=== PATIENT | male | born 1955 | race Caucasian/White ===

== ENCOUNTER 2024-07-13 19:39 | Inpatient (IN) | payer OTHER ==
[~2024-07-13] VITALS: Ht 170.2 cm; Wt 87.5 kg
[2024-07-13 21:27] VITALS: BP 152/74; TEMP 98.4; O2SAT 99
[2024-07-13] MEDS ORDERED: LACT10SO58 PO (22:29)
[2024-07-13] MEDS ORDERED: LACT10SO29 PO (22:29)
[2024-07-13] MEDS ORDERED: MAG HYDROX/AL HYDROX/SIMETH 30 ML UDC PO PRN (22:30)
[2024-07-13] MEDS ORDERED: ONDANSETRON HCL/PF 4 MG/2 ML VIAL IVP PRN (22:30)
[2024-07-13] MEDS ORDERED: ACETAMINOPHEN 325 MG TABLET PO PRN (22:30)
[2024-07-13] MEDS ORDERED: ZOLPIDEM TARTRATE 5 MG TABLET PO PRN (22:30)
[2024-07-13] MEDS ORDERED: Z GUARD REMEDY 4 OZ OINT TP PRN (22:30)
[2024-07-13] MEDS ORDERED: MAGNESIUM HYDROXIDE 30 ML UDC PO PRN (22:30)
[2024-07-14] VITALS: BP 149/77; TEMP 97.9; O2SAT 99
[2024-07-14] MEDS ORDERED: FOLI0.8C PO (03:51)
[2024-07-14] MEDS ORDERED: NADO20TA3 PO (03:51)
[2024-07-14] MEDS ORDERED: LISI-768 PO (03:51)
[2024-07-14] MEDS ORDERED: FURO20TA4 PO (03:51)
[2024-07-14 04:00] VITALS: BP 143/73; TEMP 97.9; O2SAT 99
[2024-07-14 06:40] LABS: INR 1.41 (0.91-1.10); PROTHROMBIN TIME 14.6 SECS (9.2-11.1)
[2024-07-14 06:50] LABS: ALBUMIN 2.4 g/dL (3.4-5.0); BILIRUBIN,DIRECT 0.5 mg/dL (0.0-0.2); BILIRUBIN,TOTAL 1.5 mg/dL (0.2-1.0); CALCIUM, SERUM 8.4 mg/dL (8.5-10.1); CREATININE 0.8 mg/dL (0.6-1.3); MAGNESIUM 1.8 mg/dL (1.8-2.4); PHOSPHORUS 4.8 mg/dL (2.5-4.9); POTASSIUM 4.6 mmol/L (3.5-5.1); TOTAL PROTEIN, SERUM 7.1 g/dL (6.4-8.2)
[2024-07-14 07:37] LABS: THYROID STIMULATING HORMONE 5.23 uIU/mL (0.358-3.74)
[2024-07-14 07:43] LABS: BASOPHILS % (AUTO) 0.9 % (0.0-2.0); EOSINOPHILS # (AUTO) 0.3 K/uL (0.0-0.7); EOSINOPHILS % (AUTO) 8.5 % (0.0-6.0); HEMATOCRIT 34 % (39-51); HEMOGLOBIN 11.7 g/dL (13.5-17.5); LYMPHOCYTES # (AUTO) 0.8 K/uL (0.8-4.8); LYMPHOCYTES % (AUTO) 22.2 % (20.0-44.0); MEAN CORPUSCULAR HEMOGLOBIN 34 PG (26.0-33.0); MEAN CORPUSCULAR HGB CONC 35 g/dl (31.0-36.0); MEAN CORPUSCULAR VOLUME 97 fL (80-96); MONOCYTES # (AUTO) 0.5 K/uL (0.1-1.30); MONOCYTES % (AUTO) 14.3 % (2.0-12.0); NEUTROPHILS % (AUTO) 54.1 % (43.0-81.0); PLATELET COUNT (AUTO) 56 K/uL (150-450); RED BLOOD CELL COUNT(AUTO) 3.46 MIL/uL (4.5-6.0); RED CELL DISTRIBUTION WIDTH 15.6 % (11.5-15.0); WHITE BLOOD COUNT (AUTO) 3.7 K/uL (4.3-11.0)
[2024-07-14] MEDS: PANTOPRAZOLE 40 MG TABLET.DR PO SCH (07:51)
[2024-07-14 08:00] VITALS: BP 135/77; TEMP 98.2; O2SAT 100
[2024-07-14 12:00] VITALS: BP 131/98; TEMP 98.2; O2SAT 99
[2024-07-14 12:02] LABS: EOSINOPHILS % (MANUAL) 6 % (0-4); LYMPHOCYTES % (MANUAL) 19 % (16-48); MONOCYTES % (MANUAL) 4 % (0-11.0); NEUTROPHILS % (MANUAL) 71 (42-76)
[2024-07-14 12:04] LABS: ANISOCYTOSIS 1+; PLATELET ESTIMATE DECREASED
[2024-07-14] MEDS ORDERED: SPIR25TA6 PO (13:09)
[2024-07-14] MEDS: RIFAXIMIN 550 MG TABLET PO SCH (14:00)
[2024-07-14] MEDS: LACTULOSE 10 G/15 ML UDC (PYXIS) PO SCH (14:00)
[2024-07-14 16:00] VITALS: BP 123/91; TEMP 98.4; O2SAT 99
[2024-07-14 20:00] VITALS: BP 141/80; TEMP 98.2; O2SAT 99
[2024-07-15] VITALS: BP 160/79; TEMP 97.5; O2SAT 99
[2024-07-15 04:00] VITALS: BP 156/78; TEMP 97.7; O2SAT 99
[2024-07-15 07:06] LABS: BASOPHILS % (AUTO) 0.9 % (0.0-2.0); EOSINOPHILS # (AUTO) 0.5 K/uL (0.0-0.7); EOSINOPHILS % (AUTO) 12.2 % (0.0-6.0); HEMATOCRIT 35 % (39-51); HEMOGLOBIN 12.5 g/dL (13.5-17.5); LYMPHOCYTES # (AUTO) 1.4 K/uL (0.8-4.8); LYMPHOCYTES % (AUTO) 37.9 % (20.0-44.0); MEAN CORPUSCULAR HEMOGLOBIN 35 PG (26.0-33.0); MEAN CORPUSCULAR HGB CONC 36 g/dl (31.0-36.0); MEAN CORPUSCULAR VOLUME 96 fL (80-96); MONOCYTES # (AUTO) 0.6 K/uL (0.1-1.30); MONOCYTES % (AUTO) 15.2 % (2.0-12.0); NEUTROPHILS # (AUTO) 1.3 K/uL (1.8-8.9); NEUTROPHILS % (AUTO) 33.8 % (43.0-81.0); PLATELET COUNT (AUTO) 57 K/uL (150-450); RED CELL DISTRIBUTION WIDTH 15.6 % (11.5-15.0); WHITE BLOOD COUNT (AUTO) 3.7 K/uL (4.3-11.0)
[2024-07-15 07:55] LABS: EOSINOPHILS % (MANUAL) 11 % (0-4); LYMPHOCYTES % (MANUAL) 31 % (16-48); MONOCYTES % (MANUAL) 16 % (0-11.0); NEUTROPHILS % (MANUAL) 42 (42-76); PLATELET ESTIMATE DECREASED
[2024-07-15 07:56] LABS: ANISOCYTOSIS 1+
[2024-07-15 08:00] VITALS: BP 146/73; TEMP 97.9; O2SAT 97
[2024-07-15 08:26] LABS: ALBUMIN 2.3 g/dL (3.4-5.0); BILIRUBIN,TOTAL 1.1 mg/dL (0.2-1.0); CALCIUM, SERUM 8.6 mg/dL (8.5-10.1); CREATININE 0.8 mg/dL (0.6-1.3); MAGNESIUM 1.8 mg/dL (1.8-2.4); PHOSPHORUS 4.6 mg/dL (2.5-4.9); POTASSIUM 4.3 mmol/L (3.5-5.1)
[2024-07-15] MEDS: FUROSEMIDE 20 MG TABLET PO SCH (08:54)
[2024-07-15] MEDS: SPIRONOLACTONE 25 MG TABLET PO SCH (08:54)
[2024-07-15] MEDS: LISINOPRIL (5MG) 5 MG TABLET PO SCH (08:54)
[2024-07-15 12:00] VITALS: BP 127/67; TEMP 97.4; O2SAT 100
[2024-07-15] MEDS ORDERED: RIFA550T PO (13:40)
== END 2024-07-15 16:15 | disposition home or self-care (01) | DRG 280 ==
LOC: TELE1 20:17
PROVIDERS: ADMIT Nurse Practitioner Family; ATTEND Nurse Practitioner Acute Care
DX: K76.82 Hepatic encephalopathy (principal); K70.30 Alcoholic cirrhosis of liver without ascites; G93.41 Metabolic encephalopathy; D61.818 Other pancytopenia; D68.9 Coagulation defect, unspecified; D63.8 Anemia in other chronic diseases classified elsewhere; E88.09 Other disorders of plasma-protein metabolism, not elsewhere classified; D69.6 Thrombocytopenia, unspecified; I50.32 Chronic diastolic (congestive) heart failure; I11.0 Hypertensive heart disease with heart failure; E66.3 Overweight; Z68.30 Body mass index [BMI] 30.0-30.9, adult; E80.6 Other disorders of bilirubin metabolism; E11.9 Type 2 diabetes mellitus without complications; E78.5 Hyperlipidemia, unspecified; I70.0 Atherosclerosis of aorta
CPT/HCPCS: 36415; 80048-TC; 80053-TC; 80061-TC; 80076-TC; 82140-TC; 83735-TC; 84100-TC; 84443-TC; 85025-TC; 85610-TC; 87081-TC; 93307-TC; 97112-TC; 97116-TC; 97530-TC; 98960; G0378